=== PATIENT | male | born 1990 | race Caucasian/White ===

== ENCOUNTER 2018-05-05 09:45 | Emergency (ER) | payer MEDICAID ==
[~2018-05-05] VITALS: Ht 180.3 cm; Wt 98.9 kg
[2018-05-05 10:08] VITALS: BP 156/82; Ht 180.3 cm; Wt 98.9 kg
== END 2018-05-05 11:35 | disposition home or self-care (01) ==
LOC: ED 09:45
DX: J06.9 Acute upper respiratory infection, unspecified (principal); H92.02 Otalgia, left ear